=== PATIENT | male | born 1975 | race Asian ===

== ENCOUNTER 2018-11-05 15:04 | Emergency (ER) | payer OTHER ==
--- NOTE | 2018-11-05 15:09 | PDOC ---
Rapid Medical Evaluation Time Seen by Provider: 11/05/18 15:08 Medical Evaluation: 11/05/18 15:09 HPI: Itchy rash x 9 days PE: No gross deficis ORDERS: Benadryl Discharge Disposition - Diagnosis Rash and nonspecific skin eruption - Referrals - Patient Instructions - Post Discharge Activity
[2018-11-05] MEDS ORDERED: diphenhydrAMINE HCL 25 MG CAPSULE (FP) PO ONE (15:10)
[2018-11-05 15:28] VITALS: BP 125/77; PULSE 65; TEMP 97.9; BMI 25.0
--- NOTE | 2018-11-05 17:55 | PDOC ---
History of Present Illness - General Chief Complaint: Burn Stated Complaint: BURN ON LT ARM Time Seen by Provider: 11/05/18 15:08 History Source: Patient - History of Present Illness Location: reports: extremities Past History - Past Medical History Allergies/Adverse Reactions: Allergies Allergy/AdvReac Type Severity Reaction Status Date / Time No Known Allergies Allergy Verified 11/05/18 15:26 Home Medications: Ambulatory Orders Betamethasone Dipropionate 15 gm TP BID #1 oint...g. 11/05/18 - Suicide/Smoking/Psychosocial Hx Smoking History: Never smoked Hx Alcohol Use: Yes Drug/Substance Use Hx: No Review of Systems - Review of Systems Constitutional: No: Chills, Fever Integumentary: Yes: Pruritus, Rash *Physical Exam - Vital Signs Last Vital Signs Temp Pulse Resp BP Pulse Ox 97.9 F 65 65 H 125/77 100 11/05/18 15:26 11/05/18 15:26 11/05/18 15:26 11/05/18 15:26 11/05/18 15:26 - Physical Exam General Appearance: Yes: Appropriately Dressed. No: Apparent Distress HEENT: positive: Normal Voice Neck: positive: Supple Respiratory/Chest: negative: Respiratory Distress Integumentary: positive: Dry, Warm, Other (localized vesicles to volar aspect of distal L forearm, no erythema, ttp or warmth) Neurologic: positive: Fully Oriented, Alert, Normal Mood/Affect Medical Decision Making - Medical Decision Making 11/05/18 17:56 43 yo M, no sig hx, works as system engineer at [employer] and p/w rash to L forearm after cleaning pipes in ceiling at work 1 week ago. Was pruritic initially but not now. No pain, f/c see exam Irritant contact dermatitis, unlikely shingles given hx -dc w/ betamethasone -instructions to avoid triggers in future, i.e wear gloves at work, etc -PMD f/u as needed *DC/Admit/Observation/Transfer Diagnosis at time of Disposition: Irritant contact dermatitis Qualifiers: Contact dermatitis trigger: other trigger Qualified Code(s): L24.89 - Irritant contact dermatitis due to other agents; L24.8 - Irritant contact dermatitis due to other agents - Discharge Dispostion Disposition: HOME Condition at time of disposition: Good - Prescriptions Prescriptions: Betamethasone Dipropionate 15 gm TP BID #1 oint...g. - Referrals - Patient Instructions Printed Discharge Instructions: DI for Contact Dermatitis Additional Instructions: It appears that you have an irritant contact dermatitis Apply steroid as directed and try to avoid trigger in the future by using gloves while at work Follow up with your PMD as needed - Post Discharge Activity
== END 2018-11-05 18:08 | disposition home or self-care (01) ==
LOC: JERFT 15:04
DX: L24.89 Irritant contact dermatitis due to other agents (principal); X58.XXXA Exposure to other specified factors, initial encounter; Y93.89 Activity, other specified; Y92.239 Unspecified place in hospital as the place of occurrence of the external cause; Y99.0 Civilian activity done for income or pay
CPT/HCPCS: 99281-25